=== PATIENT | female | born 1985 | race Caucasian/White ===

== ENCOUNTER 2020-12-18 16:35 | Emergency (ER) | payer BC, SELFPAY ==
[2020-12-18 16:39] VITALS: BP 116/68; PULSE 92; RESP 23; TEMP 36.1; O2SAT 100
--- NOTE | 2020-12-18 16:41 | ED.SYNCOPE ---
HPI - Syncope General Chief Complaint: Syncope Stated Complaint: syncopal Time Seen by Provider: 12/18/20 16:35 History of Present Illness HPI narrative: 35 yo female brought in by EMS for syncopal episode. She reports that she was at work when she suddenly became hot and dizzy. She then fell to the ground. Bystanders report that she did lose consciousness briefly. Then was no prolonged period of confusion. On arrival here she says that she is feeling nearly back to normal. Iniital glucose was mildly low, repeat was normal. Related Data Home Medications Medication Instructions Recorded Confirmed No Home Medications 12/18/20 12/18/20 Allergies Allergy/AdvReac Type Severity Reaction Status Date / Time No Known Allergies Allergy Unverified 04/27/19 22:51 Review of Systems Review of Systems: All systems reviewed & are unremarkable except as noted in HPI and below Constitutional: Constitutional: Denies chills and Denies fever(s) Eyes: Eyes: Reports no additional eye complaints Cardiovascular: Cardiovascular: Denies chest pain Respiratory: Respiratory: Denies dyspnea Gastrointestinal: Gastrointestinal: Denies abdominal pain, Reports nausea and Denies vomiting Genitourinary: Genitourinary: Denies dysuria Neurologic: Denies confusion, Reports syncope, Reports headache(s), Denies numbness and Denies weakness [facility] Social History Social History Smoking status: Never smoker Gender identity (if verbalized by the patient): Female Exam Const: General: healthy appearing, no acute distress and alert Orientation/consciousness: patient oriented x3 HENMT: Head: normal to inspection Eyes: Pupils: Equal, round and reactive pupils present EOM: EOMs intact bilaterally Neck: Neck: normal visual inspection Chest: Chest palpation & inspection: no tenderness Resp: Effort & Inspection: normal respiratory effort Auscultation: clear to auscultation bilaterally, no rales, no rhonchi and no wheezes Cardio: Jugular venous distension: no JVD Rate: regular rate Rhythm: regular rhythm Heart sounds: no murmurs GI: Inspection: non-distended GI Palp: Yes Soft to palpation and No Tenderness to palpation present (GI) Skin: General skin exam: normal color Neuro: General: patient oriented x3, moves all extremities, no focal motor deficits and CN's II-XI intact bilaterally Cranial nerves: Yes Nystagmus not present Speech: normal speech Gait exam (Neuro): Normal gait present Extrem: General: no edema Psych: Appearance: well kempt Affect: normal affect Course Vital Signs Vital signs: Vital Signs Temperature 36.1 C L 12/18/20 16:39 Pulse Rate 92 12/18/20 16:39 Respiratory Rate 23 H 12/18/20 16:39 Blood Pressure 116/68 12/18/20 16:39 Pulse Oximetry 100 12/18/20 16:39 Temperature 36.1 C L 12/18/20 16:39 Pulse Rate 82 12/18/20 17:53 Respiratory Rate 23 H 12/18/20 16:39 Blood Pressure 131/88 12/18/20 17:53 Pulse Oximetry 100 12/18/20 16:43 MDM - Syncope MDM Narrative Medical decision making narrative: Symptoms sound like vasovagal syncope. No seizure like activity reported. No prolonged period of confusion. No tongue biting or other injury. Labs point toward dehydration/concentration. Differential Diagnosis Differential diagnosis: Likely syncope due to orthostatic hypotension, vasovagal syncope, dehydration and other Medical Records Attestation: I reviewed the patient's medical records. Lab Data Attestation: I reviewed the patient's lab results. Result diagrams: 12/18/20 16:56 12/18/20 16:56 Labs: Lab Results 12/18/20 12/18/20 Range/Units 16:56 16:56 WBC 12.0 H (4.5-10.0) K/mm3 RBC 5.33 (4.2-5.4) M/mm3 Hgb 17.6 H (12.0-15.0) g/dL Hct 51.4 H (37.0-47.0) % MCV 96.4 (80-100) fl MCH 33.0 (26-34) pg MCHC 34.2 (32-36) g/dl RDW 12.3 (11.5-14.5) % Plt Count 2
[2020-12-18 16:43] VITALS: PULSE 84; O2SAT 100
--- NOTE | 2020-12-18 16:47 | ECG_ITS ---
Measurements Intervals [place] Rate: 66 P: 53 MS: 134 QRS: 59 QRSD: 80 T: 57 QT: 415 QTc: 436 Interpretive Statements SINUS RHYTHM WITH SINUS ARRHYTHMIA BASELINE ARTIFACT- I, II, III, AVR, AVL, AVF, V1 NORMAL ECG Electronically Signed On 12-18-2020 18:58:43 DOCTOR OF NURSING PRACTICE by Larry Elise D.O.
[2020-12-18] MEDS: SODIUM CHLORIDE 0.9% IV 1,000 ML 999 ML IV CONT ×2 (17:01→19:48)
[2020-12-18 17:02] LABS: Basophils Absolute Auto 0.1 K/mm3 (0.0-0.1); Basophils Percent Auto 0.6 % (0.2-1.2); Eosinophils Absolute Auto 0.1 K/mm3 (0-0.3); Eosinophils Percent Auto 0.7 % (0-4.4); Hematocrit 51.4 % (37.0-47.0); Hemoglobin 17.6 g/dL (12.0-15.0); Immature Granulocyte Absolute 0.04 K/mm3 (0.00-0.031); Immature Granulocyte Percent A 0.3 % (0-0.5); Lymphocytes Absolute Auto 2.25 K/mm3 (0.9-3.2); Lymphocytes Percent Auto 18.8 % (18.3-44.2); Mean Corpuscular HGB Conc 34.2 g/dl (32-36); Mean Corpuscular Volume 96.4 fl (80-100); Monocytes Percent Auto 7.9 % (2.6-8.5); Neutrophils Absolute Auto 8.6 K/mm3 (1.3-6.7); Neutrophils Percent Auto 71.7 % (45.5-73.1); Platelet Count Result 278 k/mm3 (150-375); Red Blood Count 5.33 M/mm3 (4.2-5.4); Red Cell Distribution Width 12.3 % (11.5-14.5)
[2020-12-18 17:15] LABS: Anion Gap 8 mmol/L (8-16); Blood Urea Nitrogen 11 mg/dL (7-17); Calcium 9.3 mg/dL (8.4-10.2); Carbon Dioxide 31 mmol/L (22-30); Chloride 98 mmol/L (98-107); Estimated CRCL calculation 98 ml/min; Estimated Glomerular Filt Rate > 60; Glucose 107 mg/dL (65-105); Sodium 137 mmol/L (137-145)
[2020-12-18 17:50] VITALS: BP 118/74; PULSE 74
[2020-12-18 17:51] VITALS: BP 135/83; PULSE 79
[2020-12-18 17:53] VITALS: BP 131/88; PULSE 82
[2020-12-18] MEDS: LORazepam INJ (*CRX) 2 MG/ML VIAL 0.5 MG IV PUSH (19:29)
[2020-12-18] MEDS: KETOROLAC 30 MG/ML VIAL (*BKC) IV PUSH (20:12)
--- NOTE | 2020-12-18 20:26 | PC.NURSE ---
attempted to discharge patient for second time. patient reports new symptoms and concerns each time discharge is attempted. ERP made aware and will speak to patient
== END 2020-12-18 20:36 | disposition home or self-care (01) ==
PROVIDERS: Emergency Provider Emergency Medicine
DX: R55 Syncope and collapse (principal); E86.0 Dehydration
CPT/HCPCS: 36415; 80048; 85025; 93005; 96361; 96374; 96375; 99284; J1885; J2060; J7030